=== PATIENT | female | born 2000 | race Caucasian/White ===

== ENCOUNTER 2022-06-03 17:48 | Emergency (ER) | payer OTHER, BC, SELFPAY ==
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
[2022-06-03 17:58] VITALS: BP 118/79; PULSE 97; RESP 16; TEMP 36.6; O2SAT 100
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
== END 2022-06-03 19:15 | disposition home or self-care (01) ==
PROVIDERS: Emergency Provider Registered Nurse; PCP Family Medicine
DX: S29.012A Strain of muscle and tendon of back wall of thorax, initial encounter (principal); V43.52XA Car driver injured in collision with other type car in traffic accident, initial encounter; F41.9 Anxiety disorder, unspecified; F32.A Depression, unspecified; F17.290 Nicotine dependence, other tobacco product, uncomplicated
CPT/HCPCS: 71100; 99213; G0463

== ENCOUNTER 2023-01-19 17:18 | Emergency (ER) | payer OTHER, BC, SELFPAY ==
[2023-01-19 17:24] VITALS: BP 126/54; PULSE 92; RESP 20; TEMP 36.3; O2SAT 100
--- NOTE | 2023-01-19 17:28 | ED.GENADULT ---
HPI - General Adult General Chief complaint: Nausea/Vomiting/Diarrhea Stated complaint: Vomiting,Nausea Source: patient and RN notes reviewed History of Present Illness HPI narrative: 22 yo F presents to urgent care with complaints of vomiting in the middle of the night for the last 2 nights. Pt states she had one episode of diarrhea today and one yesterday. Denies any abdominal pain, fevers, chills, chest pain, or SOB. Pt denies any ear pain, sore throat, or congestion. States she has had a slight runny nose. Pt also mentions she is 11 days late on her menstrual period. Related Data Home Medications Medication Instructions Recorded Confirmed aripiprazole 5 mg tablet 5 mg PO DAILY 06/03/22 01/19/23 dextroamphetamine-amphetamine ER 25 mg PO DAILY 06/03/22 01/19/23 25 mg 24hr capsule,extend release fluoxetine 40 mg capsule 40 mg PO DAILY 06/03/22 01/19/23 topiramate 50 mg tablet 50 mg PO DIRECTED 01/19/23 01/19/23 Allergies Allergy/AdvReac Type Severity Reaction Status Date / Time No Known Allergies Allergy Verified 01/19/23 17:33 Review of Systems Review of Systems: Pertinent positives and pertinent negatives per HPI. [facility]LY [facility] Past Medical History Medical History (Updated 01/19/23 @ 17:52 by Adriana Centeno APRN) ADHD (attention deficit hyperactivity disorder) Anxiety and depression Bipolar disorder Social History Social History (Updated 06/05/22 @ 07:57 by Meseret Taylor NP) Tobacco type: e-cigarettes/vaping Alcohol intake: unknown Substance use type: does not use Living arrangements: with family Gender identity (if verbalized by the patient): Female Comments At the time of my signature, I reviewed and agree with the nursing past medical, surgical, social, and family history. There is no relevant family history pertinent to the patient complaint. Exam Narrative: GENERAL: This is a well-nourished, well-developed patient, in no apparent distress. HEAD: normocephalic, atraumatic. EYES: Sclera clear/white. Vision is grossly intact. EARS: External ears normal, auditory canals clear and without drainage. Hearing grossly intact. NOSE: External nose normal with no obvious nasal discharge, nares without redness, no rhinorrhea. THROAT: Mucous membranes moist, posterior pharynx clear. NECK: Neck supple, non-tender without lymphadenopathy, masses or thyromegaly. CARDIOVASCULAR: Regular rate and rhythm without murmurs, gallops, or rubs. RESPIRATORY: Clear to auscultation. Breath sounds equal bilaterally. No wheezes, rales, or rhonchi. GASTROINTESTINAL: Abdomen soft, non-tender, nondistended. Bowel sounds are active. No hepato-splenomegaly, or palpable masses. No guarding. SKIN: warm, intact with no suspicious lesions or rash, good texture and turgor. NEURO: awake, alert, and oriented to person, place and time. There were no obvious focal neurologic abnormalities. EXTREMITIES: No clubbing, cyanosis, or edema. No joint tenderness, effusion, or edema noted. BACK: Nontender without deformity or crepitus. No flank tenderness. Course Course Level of Care: Express Care Visit Vital Signs Vital signs: Vital Signs Temperature 97.4 F L 01/19/23 17:24 Pulse Rate 92 01/19/23 17:24 Respiratory Rate 20 01/19/23 17:24 Blood Pressure 126/54 L 01/19/23 17:24 Pulse Oximetry 100 01/19/23 17:24 Oxygen Delivery Room Air 01/19/23 17:24 Temperature 97.4 F L 01/19/23 17:24 Pulse Rate 92 01/19/23 17:24 Respiratory Rate 20 01/19/23 17:24 Blood Pressure 126/54 L 01/19/23 17:24 Pulse Oximetry 100 01/19/23 17:24 Oxygen Delivery Room Air 01/19/23 17:24 Reviewed Medical Decision Making MDM Narrative Medical decision making narrative: You've been diagnosed with a viral illness that would not require antibiotics at this time. Take the Zofran ODT at home as directed for nausea and get plenty of fluids. If you would like to eat food, you should follow the BRAT diet (bana
== END 2023-01-19 17:55 | disposition home or self-care (01) ==
PROVIDERS: Emergency Provider Nurse Practitioner Family
DX: K52.9 Noninfective gastroenteritis and colitis, unspecified (principal); F90.9 Attention-deficit hyperactivity disorder, unspecified type; F41.9 Anxiety disorder, unspecified; F32.A Depression, unspecified
CPT/HCPCS: 81025; 99213; G0463

== ENCOUNTER 2023-06-18 09:57 | Emergency (ER) | payer BC, SELFPAY ==
[2023-06-18 10:03] VITALS: BP 111/72; PULSE 108; RESP 18; TEMP 37.1; O2SAT 97
--- NOTE | 2023-06-18 10:24 | ED.URI ---
HPI - URI/Sore Throat General Chief Complaint: Upper Respiratory Infection Stated Complaint: sore throat/congestion/head Time Seen by Provider: 06/18/23 10:24 Source: patient, RN notes reviewed and old records reviewed Mode of arrival: ambulatory Limitations: no limitations History of Present Illness HPI Narrative: 23-year-old female presents to the [facility] with complaints of a sore throat for 1 day. States that she fell fevers last night. No treatment prior to arrival. Onset (ago): day(s) (1) Treatments prior to arrival: none Related Data Home Medications Medication Instructions Recorded Confirmed aripiprazole 5 mg tablet 5 mg PO DAILY 06/03/22 01/19/23 dextroamphetamine-amphetamine ER 25 mg PO DAILY 06/03/22 01/19/23 25 mg 24hr capsule,extend release fluoxetine 40 mg capsule 40 mg PO DAILY 06/03/22 01/19/23 Allergies Allergy/AdvReac Type Severity Reaction Status Date / Time No Known Allergies Allergy Verified 06/18/23 10:01 Review of Systems Review of Systems: All systems reviewed & are unremarkable except as noted in HPI and below Constitutional: Constitutional: Reports no additional constitutional complaints Eyes: Eyes: Reports no additional eye complaints ENT: Reports as per HPI and Reports sore throat Cardiovascular: Cardiovascular: Reports no additional cardiovascular complaints, Denies chest pain and Denies dyspnea Respiratory: Respiratory: Reports no additional respiratory complaints, Denies chest congestion, Denies cough and Denies dyspnea Gastrointestinal: Gastrointestinal: Reports no additional gastrointestinal complaints, Denies abdominal pain, Denies nausea and Denies vomiting Musculoskeletal: Musculoskeletal: Reports no additional musculoskeletal complaints Integumentary/Breasts: Skin/Breast: Reports system reviewed and no additional complaints, except as docu Neurologic: Reports system reviewed and no additional complaints, except as documented Psychiatric: Psychiatric: Reports no additional psychiatric complaints Allergic/Immunologic: Allergic/Immunologic: Reports no additional allergic/immunologic complaints PMFSH Past Medical History Medical History ADHD (attention deficit hyperactivity disorder) Anxiety and depression Bipolar disorder Surgical History Surgical History (Updated 06/18/23 @ 17:51 by Eloise Quinonez APRN) H/O adenoidectomy History of tonsillectomy Social History Social History (Reviewed 06/18/23 @ 17:51 by MENDEZ Merritt Tobacco type: e-cigarettes/vaping Alcohol intake: unknown Substance use type: does not use Living arrangements: with family Gender identity (if verbalized by the patient): Female Comments At the time of my signature, I reviewed and agree with the nursing past medical, surgical, social, and family history. There is no relevant family history pertinent to the patient complaint. Exam Const: General: cooperative, healthy appearing, comfortable, no acute distress, well developed, alert and well nourished Nutritional Appearance: well nourished Orientation/consciousness: patient oriented x3 Limitations: no limitations HENMT: Head: normal to inspection Ears: hearing grossly normal bilaterally, external ears normal, TM's normal bilaterally, EAC's normal, mastoids normal and no periauricular adenopathy Face/Nose/Sinus: Normal external nose present, Normal nares present, Normal nasal mucous membranes and turbinates present, Nasal discharge present clear bilateral, normal facial exam and face symmetric Face and sinus: normal facial exam and face symmetric Mouth: Yes Normal oral and palatal mucosa present, Yes lip normal and Yes moist mucous membranes Throat: posterior oropharynx normal, uvula midline, tonsils absent and no uvular edema Eyes: General: appearance normal, both eyes and all related structures Alignment and Position: alignment normal Periorbital: periorbita
== END 2023-06-18 10:32 | disposition home or self-care (01) ==
PROVIDERS: Emergency Provider Nurse Practitioner; PCP Nurse Practitioner Family
DX: J02.0 Streptococcal pharyngitis (principal); F17.290 Nicotine dependence, other tobacco product, uncomplicated; F90.9 Attention-deficit hyperactivity disorder, unspecified type; F41.9 Anxiety disorder, unspecified; F32.A Depression, unspecified
CPT/HCPCS: 87880; 99213; G0463